=== PATIENT | male | born 1960 | race African-American/Black ===

== ENCOUNTER 2021-06-14 13:01 | Inpatient (IN) | payer MEDICAID ==
[~2021-06-14] VITALS: Ht 172.7 cm; Wt 86.4 kg
[2021-06-14 14:12] LABS: BASOPHILS % 0.2 % (0.0-2.0); HEMATOCRIT. 46.1 % (42.0-52.0); HEMOGLOBIN. 15.7 g/dL (14.0-18.0); LYMPHOCYTES % 10.4 % (20.0-50.0); MEAN CORPUSCULAR HEMOGLOBIN 26.5 pg (28.0-32.0); MEAN CORPUSCULAR VOLUME 78.1 fL (80.0-94.0); MEAN PLATELET VOLUME 8.9 fl (7.4-10.4); MONOCYTES % 7.7 % (2.0-8.0); NEUTROPHILS % 81.7 % (40.0-76.0); PLATELET 154 x1000/uL (130-400); RED BLOOD CELL COUNT 5.91 mill/uL (4.7-6.1); RED CELL DISTRIBUTION WIDTH 14.2 % (11.6-14.6)
[2021-06-14 14:18] LABS: CHLORIDE 103 mEq/L (98-107)
[2021-06-14] MEDS ORDERED: DEXAMETHASONE 10 MG/ML VIAL IV SCH (14:30)
[2021-06-14] MEDS ORDERED: CEFTRIAXONE 1 G PREMIX 50 ML IV NR (15:00)
[2021-06-14] MEDS ORDERED: AZITHROMYCIN 500 MG TABLET PO NR (15:00)
[2021-06-14] MEDS ORDERED: CLONIDINE 0.1MG TABLET PO PRN (16:00)
[2021-06-14] MEDS ORDERED: ONDANSETRON HCL 4MG/2ML INJ IV PRN (16:00)
[2021-06-14] MEDS ORDERED: DIPHENHYDRAMINE 50MG/ML VIAL IV PRN (16:00)
[2021-06-14] MEDS: ENOXAPARIN 40MG/0.4ML SYR SUBCUT SCH (16:32)
[2021-06-15 04:37] LABS: BASOPHILS % 0.1 % (0.0-2.0); HEMATOCRIT. 45.7 % (42.0-52.0); HEMOGLOBIN. 15.3 g/dL (14.0-18.0); MEAN CORPUSCULAR HEMOGLOBIN 26.5 pg (28.0-32.0); MEAN PLATELET VOLUME 9.3 fl (7.4-10.4); MONOCYTES % 8.1 % (2.0-8.0); NEUTROPHILS % 83.8 % (40.0-76.0); PLATELET 205 x1000/uL (130-400); RED BLOOD CELL COUNT 5.79 mill/uL (4.7-6.1); RED CELL DISTRIBUTION WIDTH 14.3 % (11.6-14.6)
[2021-06-15 04:47] LABS: CHLORIDE 106 mEq/L (98-107)
[2021-06-15 05:01] LABS: LDL CHOLESTEROL 76 mg/dL (5-100)
[2021-06-15 05:03] LABS: HDL CHOLESTEROL 52 mg/dL (40-59)
[2021-06-15] MEDS ORDERED: AZITHROMYCIN 500 MG in DEXT 5% WATER 250 ML IV SCH (09:00)
[2021-06-15] MEDS: DEXAMETHASONE 10 MG/ML VIAL IV SCH (09:27)
[2021-06-15] MEDS: ASCORBIC ACID 500 MG TABLET PO SCH (09:27)
[2021-06-15] MEDS: ZINC SULFATE 220 MG ( 50 ) CAPSULE PO SCH (09:27)
[2021-06-15 13:57] LABS: BG BASE EXCESS 2.1 mmol/L (-2.0-2.0); BG CARBOXYHEMOGLOBIN 0.4 % (0.5-1.5); BG DEOXYHEMOGLOBIN 19.7 % (0.0-5.0); BG FRACTION INSPIRED OXYGEN 21; BG HCO3 ACT 24.9 mmol/L (22.0-26.0); BG METHEMOGLOBIN 0.3 % (0.0-1.5); BG OXYGEN SATURATION 80.2 % (92.0-98.5); BG OXYHEMOGLOBIN 79.6 % (94.0-97.0); BG PCO2 33.9 mmHg (35.0-45.0); BG PH 7.484 (7.350-7.450); BG PO2 42.9 mmHg (75.0-100.0); BG SAMPLE SITE RIGHT RADIAL; BG TOTAL HEMOGLOBIN 16.3 g/dL (12.0-18.0); BG VENT MODE ROOM AIR
[2021-06-15] MEDS ORDERED: CEFTRIAXONE 1 G PREMIX 50 ML IV SCH (15:00)
[2021-06-15] MEDS: CEFTRIAXONE 1,000 MG in DEXTROSE 5% WATER 50 ML IV SCH (16:50)
[2021-06-15] MEDS: ENOXAPARIN 40MG/0.4ML SYR SUBCUT SCH (16:50)
[2021-06-15 17:00] VITALS: BP 118/65
[2021-06-15 19:45] VITALS: BP 142/84
[2021-06-16] VITALS: BP 127/92
[2021-06-16 04:00] VITALS: BP 123/82
[2021-06-16 08:00] VITALS: BP 124/78
[2021-06-16] MEDS: ASCORBIC ACID 500 MG TABLET PO SCH (09:09)
[2021-06-16] MEDS: DEXAMETHASONE 10 MG/ML VIAL IV SCH (09:09)
[2021-06-16] MEDS: ZINC SULFATE 220 MG ( 50 ) CAPSULE PO SCH (09:09)
[2021-06-16] MEDS: AZITHROMYCIN 500 MG in DEXT 5% WATER 250 ML IV SCH (09:09)
[2021-06-16 12:00] VITALS: BP 120/89
[2021-06-16] MEDS ORDERED: IVERMECTIN 3 MG TABLET PO SCH (12:00)
[2021-06-16 16:00] VITALS: BP 122/87
[2021-06-16] MEDS: ENOXAPARIN 40MG/0.4ML SYR SUBCUT SCH (18:10)
[2021-06-16] MEDS: CEFTRIAXONE 1,000 MG in DEXTROSE 5% WATER 50 ML IV SCH (18:10)
[2021-06-16 20:00] VITALS: BP 115/80
[2021-06-17] VITALS: BP 121/82
[2021-06-17 04:00] VITALS: BP 123/90
[2021-06-17 08:00] VITALS: BP 126/86
[2021-06-17] MEDS: ASCORBIC ACID 500 MG TABLET PO SCH (08:57)
[2021-06-17] MEDS: DEXAMETHASONE 10 MG/ML VIAL IV SCH (08:57)
[2021-06-17] MEDS: ZINC SULFATE 220 MG ( 50 ) CAPSULE PO SCH (08:57)
[2021-06-17] MEDS: AZITHROMYCIN 500 MG in DEXT 5% WATER 250 ML IV SCH (08:57)
[2021-06-17 12:00] VITALS: BP 118/85
[2021-06-17] MEDS: ENOXAPARIN 40MG/0.4ML SYR SUBCUT SCH (15:41)
[2021-06-17] MEDS: CEFTRIAXONE 1,000 MG in DEXTROSE 5% WATER 50 ML IV SCH (15:41)
[2021-06-17] MEDS: SODIUM CHLORIDE 0.9% 1,000 ML IV SCH (15:42)
[2021-06-17 16:00] VITALS: BP 124/89
[2021-06-17 20:00] VITALS: BP_SYST 120; BP_SYST 127; BP_DIAS 83; BP_DIAS 88
[2021-06-18] MEDS: SODIUM CHLORIDE 0.9% 1,000 ML IV SCH ×2 (03:54→16:47)
[2021-06-18 04:00] VITALS: BP 127/86
[2021-06-18 07:42] LABS: CHLORIDE 112 mEq/L (98-107)
[2021-06-18 08:00] VITALS: BP 118/84
[2021-06-18] MEDS: AZITHROMYCIN 500 MG in DEXT 5% WATER 250 ML IV SCH (08:36)
[2021-06-18] MEDS: ASCORBIC ACID 500 MG TABLET PO SCH (08:37)
[2021-06-18] MEDS: DEXAMETHASONE 10 MG/ML VIAL IV SCH (08:37)
[2021-06-18] MEDS: ZINC SULFATE 220 MG ( 50 ) CAPSULE PO SCH (08:37)
[2021-06-18 12:00] VITALS: BP 108/74
[2021-06-18] MEDS ORDERED: IVERMECTIN 3 MG TABLET PO SCH (12:00)
[2021-06-18] MEDS: ACETAMINOPHEN 325MG TABLET PO PRN (12:15)
[2021-06-18 16:00] VITALS: BP 112/76
[2021-06-18] MEDS: ENOXAPARIN 40MG/0.4ML SYR SUBCUT SCH (16:47)
[2021-06-18] MEDS: CEFTRIAXONE 1,000 MG in DEXTROSE 5% WATER 50 ML IV SCH (16:47)
[2021-06-18 20:00] VITALS: BP 113/71
[2021-06-19] VITALS: BP 125/78
[2021-06-19 04:00] VITALS: BP 116/96
[2021-06-19] MEDS: SODIUM CHLORIDE 0.9% 1,000 ML IV SCH ×2 (05:21→12:49)
[2021-06-19 07:59] LABS: BASOPHILS % 0.1 % (0.0-2.0); EOSINOPHILS % 0.2 % (0.0-5.0); HEMATOCRIT. 46.4 % (42.0-52.0); HEMOGLOBIN. 15.5 g/dL (14.0-18.0); LYMPHOCYTES % 7.1 % (20.0-50.0); MEAN CORPUSCULAR HEMOGLOBIN 26.5 pg (28.0-32.0); MEAN CORPUSCULAR VOLUME 79.5 fL (80.0-94.0); MEAN PLATELET VOLUME 8.9 fl (7.4-10.4); MONOCYTES % 5.5 % (2.0-8.0); NEUTROPHILS % 87.1 % (40.0-76.0); PLATELET 309 x1000/uL (130-400); RED BLOOD CELL COUNT 5.84 mill/uL (4.7-6.1); RED CELL DISTRIBUTION WIDTH 13.9 % (11.6-14.6)
[2021-06-19 08:15] LABS: CHLORIDE 114 mEq/L (98-107)
[2021-06-19] MEDS: ZINC SULFATE 220 MG ( 50 ) CAPSULE PO SCH (08:26)
[2021-06-19] MEDS: DEXAMETHASONE 10 MG/ML VIAL IV SCH (08:26)
[2021-06-19] MEDS: AZITHROMYCIN 500 MG in DEXT 5% WATER 250 ML IV SCH (08:26)
[2021-06-19] MEDS: ACETAMINOPHEN 325MG TABLET PO PRN (08:27)
[2021-06-19] MEDS: ASCORBIC ACID 500 MG TABLET PO SCH (08:27)
[2021-06-19 12:00] VITALS: BP 111/83
[2021-06-19 16:00] VITALS: BP 118/86
[2021-06-19] MEDS: ENOXAPARIN 40MG/0.4ML SYR SUBCUT SCH (16:20)
[2021-06-19] MEDS: CEFTRIAXONE 1,000 MG in DEXTROSE 5% WATER 50 ML IV SCH (16:20)
[2021-06-19 20:00] VITALS: BP 134/90
[2021-06-20 00:12] VITALS: BP 135/94
[2021-06-20 04:00] VITALS: BP 136/90
[2021-06-20 07:52] LABS: HEMATOCRIT. 46.9 % (42.0-52.0); HEMOGLOBIN. 15.4 g/dL (14.0-18.0); MEAN PLATELET VOLUME 8.8 fl (7.4-10.4); PLATELET 330 x1000/uL (130-400); RED BLOOD CELL COUNT 5.93 mill/uL (4.7-6.1); RED CELL DISTRIBUTION WIDTH 14.2 % (11.6-14.6)
[2021-06-20 08:00] VITALS: BP 119/84
[2021-06-20 08:13] LABS: CHLORIDE 112 mEq/L (98-107)
[2021-06-20] MEDS: ACETAMINOPHEN 325MG TABLET PO PRN (08:36)
[2021-06-20] MEDS: DEXAMETHASONE 10 MG/ML VIAL IV SCH (08:36)
[2021-06-20] MEDS: ZINC SULFATE 220 MG ( 50 ) CAPSULE PO SCH (08:36)
[2021-06-20] MEDS: ASCORBIC ACID 500 MG TABLET PO SCH (08:36)
[2021-06-20 12:00] VITALS: BP 111/80
[2021-06-20] MEDS: ENOXAPARIN 40MG/0.4ML SYR SUBCUT SCH (15:53)
[2021-06-20 16:00] VITALS: BP 129/78
[2021-06-20 19:45] LABS: PLATELET ESTIMATE NORMAL
[2021-06-20 20:00] VITALS: BP 125/84
[2021-06-21 00:30] VITALS: BP 132/87
[2021-06-21 04:00] VITALS: BP 140/95
[2021-06-21 08:00] VITALS: BP 142/68
[2021-06-21] MEDS: ZINC SULFATE 220 MG ( 50 ) CAPSULE PO SCH (09:13)
[2021-06-21] MEDS: ASCORBIC ACID 500 MG TABLET PO SCH (09:13)
[2021-06-21] MEDS: DEXAMETHASONE 10 MG/ML VIAL IV SCH (09:14)
[2021-06-21 12:00] VITALS: BP 122/85
[2021-06-21 16:00] VITALS: BP 112/77
[2021-06-21] MEDS: ENOXAPARIN 40MG/0.4ML SYR SUBCUT SCH (16:02)
[2021-06-21 20:00] VITALS: BP 116/86
[2021-06-22 00:05] VITALS: BP 121/72
[2021-06-22 04:00] VITALS: BP 118/76
[2021-06-22 08:00] VITALS: BP 117/45
[2021-06-22] MEDS: ZINC SULFATE 220 MG ( 50 ) CAPSULE PO SCH (09:21)
[2021-06-22] MEDS: ASCORBIC ACID 500 MG TABLET PO SCH (09:21)
[2021-06-22] MEDS: DEXAMETHASONE 10 MG/ML VIAL IV SCH (10:00)
[2021-06-22 12:00] VITALS: BP 122/85
[2021-06-22 16:00] VITALS: BP 112/78
[2021-06-22] MEDS: ENOXAPARIN 40MG/0.4ML SYR SUBCUT SCH (16:14)
[2021-06-22 20:00] VITALS: BP 115/81
[2021-06-23 00:04] VITALS: BP 111/83
[2021-06-23 04:00] VITALS: BP 127/88
[2021-06-23 08:00] VITALS: BP 127/76
[2021-06-23] MEDS: ASCORBIC ACID 500 MG TABLET PO SCH (09:10)
[2021-06-23] MEDS: DEXAMETHASONE 10 MG/ML VIAL IV SCH (09:10)
[2021-06-23] MEDS: ZINC SULFATE 220 MG ( 50 ) CAPSULE PO SCH (09:10)
[2021-06-23 12:00] VITALS: BP 127/81
[2021-06-23 16:00] VITALS: BP 111/76
[2021-06-23] MEDS: ENOXAPARIN 40MG/0.4ML SYR SUBCUT SCH (16:55)
[2021-06-23 20:00] VITALS: BP 133/80
[2021-06-24 00:05] VITALS: BP 118/69
[2021-06-24 04:00] VITALS: BP 121/85
[2021-06-24 07:09] LABS: BASOPHILS % 0.2 % (0.0-2.0); EOSINOPHILS % 0.4 % (0.0-5.0); HEMATOCRIT. 45.6 % (42.0-52.0); HEMOGLOBIN. 14.7 g/dL (14.0-18.0); LYMPHOCYTES % 15.7 % (20.0-50.0); MEAN CORPUSCULAR HEMOGLOBIN 25.7 pg (28.0-32.0); MEAN CORPUSCULAR VOLUME 79.5 fL (80.0-94.0); MEAN PLATELET VOLUME 9.2 fl (7.4-10.4); MONOCYTES % 10.5 % (2.0-8.0); NEUTROPHILS % 73.2 % (40.0-76.0); PLATELET 299 x1000/uL (130-400); RED BLOOD CELL COUNT 5.74 mill/uL (4.7-6.1)
[2021-06-24 08:00] VITALS: BP 122/75
[2021-06-24] MEDS: ASCORBIC ACID 500 MG TABLET PO SCH (08:18)
[2021-06-24] MEDS: ZINC SULFATE 220 MG ( 50 ) CAPSULE PO SCH (08:18)
[2021-06-24] MEDS: DEXAMETHASONE 10 MG/ML VIAL IV SCH (08:18)
[2021-06-24 08:25] LABS: CHLORIDE 108 mEq/L (98-107)
[2021-06-24 12:00] VITALS: BP 114/79
[2021-06-24 16:00] VITALS: BP 100/73
[2021-06-24] MEDS: ENOXAPARIN 40MG/0.4ML SYR SUBCUT SCH (16:55)
[2021-06-24 20:00] VITALS: BP 122/80
[2021-06-25] VITALS: BP 131/84
[2021-06-25 04:00] VITALS: BP 122/74
[2021-06-25 06:34] LABS: CHLORIDE 107 mEq/L (98-107)
[2021-06-25 06:36] LABS: BASOPHILS % 0.4 % (0.0-2.0); EOSINOPHILS % 0.7 % (0.0-5.0); HEMOGLOBIN. 15.5 g/dL (14.0-18.0); LYMPHOCYTES % 20.5 % (20.0-50.0); MEAN CORPUSCULAR HEMOGLOBIN 26.3 pg (28.0-32.0); MEAN CORPUSCULAR VOLUME 79.9 fL (80.0-94.0); MEAN PLATELET VOLUME 9.2 fl (7.4-10.4); MONOCYTES % 11.4 % (2.0-8.0); PLATELET 280 x1000/uL (130-400); RED BLOOD CELL COUNT 5.88 mill/uL (4.7-6.1); RED CELL DISTRIBUTION WIDTH 13.9 % (11.6-14.6)
[2021-06-25 08:00] VITALS: BP 106/74
[2021-06-25] MEDS: ZINC SULFATE 220 MG ( 50 ) CAPSULE PO SCH (09:24)
[2021-06-25] MEDS: ASCORBIC ACID 500 MG TABLET PO SCH (09:24)
[2021-06-25 12:00] VITALS: BP_SYST 100; BP_SYST 157; BP_DIAS 65
[2021-06-25] MEDS ORDERED: IPRATROPIUM/ALBUTEROL 0.5-3(2.5)MG/3ML NEB HHN PRN (12:30)
[2021-06-25] MEDS: IPRATROPIUM/ALBUTEROL 0.5-3(2.5)MG/3ML NEB HHN SCH (15:37)
[2021-06-25 16:30] VITALS: BP 98/71
[2021-06-25] MEDS: ENOXAPARIN 40MG/0.4ML SYR SUBCUT SCH (17:34)
[2021-06-25 20:00] VITALS: BP 108/74
[2021-06-26] VITALS: BP 133/81
[2021-06-26] MEDS: IPRATROPIUM/ALBUTEROL 0.5-3(2.5)MG/3ML NEB HHN SCH ×4 (01:28→20:20)
[2021-06-26 04:00] VITALS: BP 120/71
[2021-06-26 07:58] VITALS: BP 108/71
[2021-06-26] MEDS: ZINC SULFATE 220 MG ( 50 ) CAPSULE PO SCH (08:34)
[2021-06-26] MEDS: ASCORBIC ACID 500 MG TABLET PO SCH (08:34)
[2021-06-26 12:00] VITALS: BP 115/73
[2021-06-26 12:54] LABS: BG BASE EXCESS 3.9 mmol/L (-2.0-2.0); BG CARBOXYHEMOGLOBIN 0.3 % (0.5-1.5); BG DEOXYHEMOGLOBIN 8.5 % (0.0-5.0); BG FRACTION INSPIRED OXYGEN 21; BG HCO3 ACT 27.6 mmol/L (22.0-26.0); BG METHEMOGLOBIN 0.3 % (0.0-1.5); BG OXYGEN SATURATION 91.4 % (92.0-98.5); BG OXYHEMOGLOBIN 90.9 % (94.0-97.0); BG PCO2 38.7 mmHg (35.0-45.0); BG PH 7.471 (7.350-7.450); BG SAMPLE SITE RIGHT RADIAL; BG TOTAL HEMOGLOBIN 15.7 g/dL (12.0-18.0); BG VENT MODE ROOM AIR
[2021-06-26] MEDS: ENOXAPARIN 40MG/0.4ML SYR SUBCUT SCH (15:45)
[2021-06-26 16:00] VITALS: BP 119/70
[2021-06-26 20:00] VITALS: BP 104/73
[2021-06-26] MEDS: ACETAMINOPHEN 325MG TABLET PO PRN (21:32)
[2021-06-27] VITALS: BP 105/75
[2021-06-27 04:00] VITALS: BP 125/73
[2021-06-27 05:38] LABS: CHLORIDE 108 mEq/L (98-107)
[2021-06-27 06:20] LABS: BASOPHILS % 0.5 % (0.0-2.0); EOSINOPHILS % 0.9 % (0.0-5.0); HEMATOCRIT. 43.6 % (42.0-52.0); HEMOGLOBIN. 14.4 g/dL (14.0-18.0); LYMPHOCYTES % 23.2 % (20.0-50.0); MEAN CORPUSCULAR HEMOGLOBIN 26.1 pg (28.0-32.0); MEAN CORPUSCULAR VOLUME 79.2 fL (80.0-94.0); MEAN PLATELET VOLUME 9.4 fl (7.4-10.4); MONOCYTES % 13.6 % (2.0-8.0); NEUTROPHILS % 61.8 % (40.0-76.0); PLATELET 260 x1000/uL (130-400); RED CELL DISTRIBUTION WIDTH 13.8 % (11.6-14.6)
[2021-06-27 08:00] VITALS: BP 116/59
[2021-06-27] MEDS: ASCORBIC ACID 500 MG TABLET PO SCH (09:07)
[2021-06-27] MEDS: ZINC SULFATE 220 MG ( 50 ) CAPSULE PO SCH (09:07)
[2021-06-27] MEDS: IPRATROPIUM/ALBUTEROL 0.5-3(2.5)MG/3ML NEB HHN SCH ×2 (09:25→13:10)
[2021-06-27 12:00] VITALS: BP 124/62
[2021-06-27 16:00] VITALS: BP 108/76
[2021-06-27] MEDS: ENOXAPARIN 40MG/0.4ML SYR SUBCUT SCH (16:28)
[2021-06-27 20:00] VITALS: BP 112/81
[2021-06-28] VITALS: BP 113/74
[2021-06-28] MEDS: ACETAMINOPHEN 325MG TABLET PO PRN ×2 (00:14→12:13)
[2021-06-28] MEDS: IPRATROPIUM/ALBUTEROL 0.5-3(2.5)MG/3ML NEB HHN SCH ×3 (01:58→15:47)
[2021-06-28 04:00] VITALS: BP 112/82
[2021-06-28 07:52] VITALS: BP 124/56
[2021-06-28] MEDS: ZINC SULFATE 220 MG ( 50 ) CAPSULE PO SCH (08:42)
[2021-06-28] MEDS: ASCORBIC ACID 500 MG TABLET PO SCH (08:42)
[2021-06-28 12:00] VITALS: BP 115/61
[2021-06-28] MEDS ORDERED: NALOXONE HCL 0.4MG/ML VIAL IV PRN (14:45)
[2021-06-28 16:00] VITALS: BP 119/81
[2021-06-28] MEDS: ENOXAPARIN 40MG/0.4ML SYR SUBCUT SCH (16:25)
[2021-06-28] MEDS: TRAMADOL 50MG TABLET PO PRN (16:26)
[2021-06-28 20:00] VITALS: BP 112/74
[2021-06-29] VITALS: BP 123/89
[2021-06-29] MEDS: IPRATROPIUM/ALBUTEROL 0.5-3(2.5)MG/3ML NEB HHN SCH ×3 (02:25→15:43)
[2021-06-29 04:00] VITALS: BP 115/65
[2021-06-29 08:00] VITALS: BP 113/75
[2021-06-29] MEDS: ZINC SULFATE 220 MG ( 50 ) CAPSULE PO SCH (08:15)
[2021-06-29] MEDS: ASCORBIC ACID 500 MG TABLET PO SCH (08:16)
[2021-06-29] MEDS: TRAMADOL 50MG TABLET PO PRN (08:16)
[2021-06-29 12:00] VITALS: BP 128/81
[2021-06-29] MEDS ORDERED: TRAM50TA3 MT (12:59)
[2021-06-29] MEDS ORDERED: ACET650T37 MT (12:59)
[2021-06-29] MEDS ORDERED: ALBU18HF2 IH (12:59)
[2021-06-29 16:00] VITALS: BP 107/71
[2021-06-29] MEDS: ENOXAPARIN 40MG/0.4ML SYR SUBCUT SCH ×2 (16:00→17:36)
[2021-06-29 20:00] VITALS: BP 114/72
[2021-06-30] VITALS: BP 118/76
[2021-06-30] MEDS: IPRATROPIUM/ALBUTEROL 0.5-3(2.5)MG/3ML NEB HHN SCH ×2 (01:33→08:31)
[2021-06-30 04:00] VITALS: BP 123/87
[2021-06-30 08:00] VITALS: BP 122/91
[2021-06-30 08:46] VITALS: BP 122/91
[2021-06-30] MEDS: ASCORBIC ACID 500 MG TABLET PO SCH (09:01)
[2021-06-30] MEDS: ZINC SULFATE 220 MG ( 50 ) CAPSULE PO SCH (09:01)
== END 2021-06-30 10:00 | disposition home health service (06) | DRG 720 ==
LOC: ER 13:01 → MICUSO 23:12 → 7WST 06-15 14:51 → 7EST 06-24 13:38
PROVIDERS: ADMIT Internal Medicine; ATTEND Internal Medicine
DX: A41.89 Other specified sepsis (principal); J96.01 Acute respiratory failure with hypoxia; J12.82 Pneumonia due to coronavirus disease 2019; E44.1 Mild protein-calorie malnutrition; U07.1 COVID-19; I10 Essential (primary) hypertension; Z68.28 Body mass index [BMI] 28.0-28.9, adult; Z20.828 Contact with and (suspected) exposure to other viral communicable diseases; N17.9 Acute kidney failure, unspecified
CPT/HCPCS: 36415; 36600; 71045; 80048; 80053; 80061; 82375; 82728; 82805; 83615; 83880; 84443; 84484; 85025; 85379; 86140; 86141; 87426; 93005; 94618; 97116; 97162; 99291; C1893; J0456; J0696; J1100; J1650; J2405; J7030; J7040; J7060; U0003; U0005